=== PATIENT | female | born 1990 | race Caucasian/White ===

== ENCOUNTER 2024-03-23 15:33 | Inpatient (IN) ==
[2024-03-23] MEDS: Buffered Lidocaine 1% SYRIN 1 ml INTRADERM ONE (23:01)
[2024-03-23] MEDS: Lactated Ringers 1000 ml BAG 1,000 ML IV SCH (23:05)
[2024-03-23] MEDS: Oxytocin in LR 20,000 MILLI.UNIT/1,000 ML BAG IV SCH (23:06)
[2024-03-23 23:10] LABS: ABS Lymphocytes 1.6 10^3/uL (1.0-4.8); ABS Monocytes 0.6 10^3/uL (0.0-0.9); ABS Neutrophils 6.6 10^3/uL (1.5-7.6); Eosinophil % 0.1 %; Hematocrit 39.9 % (35-45); Hemoglobin 13.9 g/dL (11.5-14.3); Lymphocyte % 17.6 %; Mean Corpuscular Hemoglobin 30.5 pg (27-33); Mean Corpuscular Hgb Conc 34.9 g/dL (31-36); Mean Corpuscular Volume 87.4 fL (80-97); Mean Platelet Volume 7.9 fL (7.5-11.2); Platelet Count 226 10^3/uL (150-450); Red Blood Count 4.57 10^6/uL (3.63-4.92); Red Cell Distribution Width 12.7 % (12-17); White Blood Count 8.9 10^3/uL (3.8-11.8)
[2024-03-23 23:30] LABS: Urine Benzodiazepine Screen None Detected (None Detect); Urine Cannabinoids Screen None Detected (None Detect); Urine Opiates Screen None Detected (None Detect)
[2024-03-24] MEDS: OBEPIDURAL (200 ML) 200 ML EPIDURAL ONE (01:35)
[2024-03-24] MEDS: Lidocaine 1.5% EPI 1:200,000 30 ML SDV ONE (01:36)
[2024-03-24] MEDS: Lactated Ringers 1000 ml BAG 1,000 ML IV ONE ×2 (01:36→01:46)
[2024-03-24] MEDS ORDERED: Sodium Citrate/Citric Acid LIQ 15 ML UDC PO PRN (01:40)
[2024-03-24] MEDS ORDERED: Phenylephrine 40 mcg/mL 10mL (400mcg) SYRINGE IV PUSH PRN ×2 (01:40)
[2024-03-24] MEDS: OBEPIDURAL (200 ML) 200 ML EPIDURAL SCH (01:46)
[2024-03-24] MEDS: Lactated Ringers 1000 ml BAG 1,000 ML IV SCH (01:56)
[2024-03-24] MEDS: Ondansetron 4 mg VIAL 2 MG/ML 2 ml VIAL IV PRN (01:58)
[2024-03-24] MEDS: Phenylephrine 40 mcg/mL 10mL (400mcg) SYRINGE ONE (02:35)
[2024-03-24 03:46] LABS: Urine Appearance Slightly Cloudy; Urine Bilirubin 1+ (Small) (Negative); Urine Color Yellow
[2024-03-24 03:47] LABS: Urine Blood Trace (Intact) (Negative); Urine Ketones 1+ (15mg/dL) (Negative); Urine Nitrite Negative (Negative); Urine Protein 1+ (30 mg/dL) (Negative); Urine Urobilinogen 0.2 (Negative) (Negative); Urine pH 6.5 (5.0-8.0)
[2024-03-24 03:56] LABS: Urine Specific Gravity 1.033 (1.005-1.030)
[2024-03-24 04:07] LABS: Urine Bacteria 1+ /HPF (Absent); Urine Red Blood Cell 1+(3-5/hpf) /HPF (0-Trace); Urine Squamous Epithelial Cell Present /HPF (Absent); Urine Transitional Epithelial Present /HPF (Absent); Urine White Blood Cell 1+(6-10/hpf) /HPF (0-Trace)
[2024-03-24] MEDS ORDERED: fentaNYL 100 mcg/2 ml 50 MCG/ML VIAL ONE (11:20)
[2024-03-24] MEDS ORDERED: Methylergonovine 0.2 mg AMPULE 1 ml AMP ONE (14:27)
[2024-03-24] MEDS: Methylergonovine 0.2 mg AMPULE 1 ml AMP IM ONE (14:28)
[2024-03-24] MEDS: Lidocaine 1% VIAL 10 MG/ML 30 ML VIAL INJ PRN (14:30)
[2024-03-24] MEDS ORDERED: Lactated Ringers 1000 ml BAG 1,000 ML IV SCH (15:00)
[2024-03-24] MEDS ORDERED: Oxytocin in LR 20,000 MILLI.UNIT/1,000 ML BAG IV SCH (15:00)
[2024-03-24 15:31] LABS: ABS Lymphocytes 0.6 10^3/uL (1.0-4.8); ABS Monocytes 1.1 10^3/uL (0.0-0.9); ABS Neutrophils 13.2 10^3/uL (1.5-7.6); Hematocrit 39.5 % (35-45); Hemoglobin 13.8 g/dL (11.5-14.3); Lymphocyte % 3.8 %; Mean Corpuscular Hemoglobin 30.7 pg (27-33); Mean Corpuscular Hgb Conc 34.9 g/dL (31-36); Mean Platelet Volume 8.3 fL (7.5-11.2); Platelet Count 195 10^3/uL (150-450); Red Blood Count 4.49 10^6/uL (3.63-4.92); Red Cell Distribution Width 12.7 % (12-17); White Blood Count 14.9 10^3/uL (3.8-11.8)
[2024-03-24] MEDS: Dibucaine 1% OINT 28.35 GM TUBE PR PRN (15:33)
[2024-03-24] MEDS: Witch Hazel PAD JAR TOPICAL PRN (15:33)
[2024-03-24 15:39] LABS: Calcium 8.9 mg/dL (8.6-10.3); Creatinine, Serum 1.24 mg/dL (0.51-0.95); Potassium 3.8 mmol/L (3.5-5.0); eGFR CKD-EPI 59.7 (>60)
[2024-03-25 06:34] LABS: ABS Basophils 0.1 10^3/uL (0.0-0.1); ABS Lymphocytes 1.8 10^3/uL (1.0-4.8); ABS Monocytes 1.1 10^3/uL (0.0-0.9); ABS Neutrophils 12.7 10^3/uL (1.5-7.6); Eosinophil % 0.3 %; Hematocrit 39.5 % (35-45); Hemoglobin 13.6 g/dL (11.5-14.3); Lymphocyte % 11.2 %; Mean Corpuscular Hemoglobin 30.7 pg (27-33); Mean Corpuscular Hgb Conc 34.5 g/dL (31-36); Mean Corpuscular Volume 88.8 fL (80-97); Mean Platelet Volume 7.7 fL (7.5-11.2); Platelet Count 222 10^3/uL (150-450); Red Blood Count 4.44 10^6/uL (3.63-4.92); White Blood Count 15.7 10^3/uL (3.8-11.8)
[2024-03-25 07:30] LABS: Calcium 7.9 mg/dL (8.6-10.3); Creatinine, Serum 0.92 mg/dL (0.51-0.95); Potassium 4.4 mmol/L (3.5-5.0); eGFR CKD-EPI 85.4 (>60)
[2024-03-26 08:51] VITALS: BP 117/75
== END 2024-03-26 12:25 | disposition home or self-care (01) | DRG 806 ==
LOC: MCHOBOUT 15:33 → MCHOB 21:30
PROVIDERS: ADMIT Midwife; ATTEND Midwife